=== PATIENT | male | born 1995 | race Caucasian/White ===

== ENCOUNTER 2023-03-18 14:30 | Emergency (ER) | payer MEDICAID ==
--- NOTE | 2023-03-18 14:34 | ERPHSYRPT ---
- History of Present Illness Time Seen by Provider: 03/18/23 14:34 Historian: patient Exam Limitations: no limitations Physician History: This is a 27-year-old white male who presents with 2 episodes of right upper quadrant abdominal pain. Patient states he did not eat breakfast but he did have chicken nuggets for lunch. Approxi-12:30 PM he began having the pain it r esolved and then recurred. The pain was severe he had associated nausea without vomiting. Patient states that he was in residential over the last several months and he has had these episodes at that time. He was told he may have a gallbladder issue. Patient denies chest pain. Patient denies fevers. He denies cough. He does not have shortness of breath. Timing/Duration: today Abdominal Pain Onset Location: RUQ Pain Radiation: no radiation Severity of Pain-Max: moderate Severity of Pain-Current: mild (To moderate) Modifying Factors: Improves With: nothing Associated Symptoms: nausea, No chest pain, No diarrhea, No fever/chills, No shortness of breath, No vomiting Previous symptoms: same symptoms as today, no recent treatment Allergies/Adverse Reactions: codeine Allergy (Unknown, Verified 03/18/23 14:42) Home Medications: No Reportable Medications [No Reported Medications] 03/18/23 [History] Travel Risk - International Travel Have you traveled outside of the country in past 3 weeks: No - Coronavirus Screening Are you exhibiting any of the following symptoms?: No Close contact with a COVID-19 positive Pt in past 14-21 Days: No - Review of Systems Constitutional: No Symptoms Eyes: No Symptoms Ears, Nose, & Throat: No Symptoms Respiratory: No Symptoms Cardiac: No Symptoms Abdominal/Gastrointestinal: Abdominal Pain (Right upper quadrant), Nausea, No Constipation Genitourinary Symptoms: No Symptoms Musculoskeletal: No Symptoms Skin: No Symptoms Neurological: No Symptoms Psychological: No Symptoms Endocrine: No Symptoms Hematologic/Lymphatic: No Symptoms Immunological/Allergic: No Symptoms All Other Systems: Reviewed and Negative - Past Medical History Pertinent Past Medical History: No - Past Surgical History Past Surgical History: No - Nursing Vital Signs Nursing Vital Signs: Initial Vital Signs Temperature 97.3 F 03/18/23 14:37 Pulse Rate 84 03/18/23 14:37 Respiratory Rate 20 03/18/23 14:37 Blood Pressure 134/80 03/18/23 14:37 O2 Sat by Pulse Oximetry 97 03/18/23 14:37 Pain Scale Pain Intensity 4 - Physical Exam General Appearance: no apparent distress, alert, anxiety Eye Exam: PERRL/EOMI, eyes nml inspection Ears, Nose, Throat Exam: normal ENT inspection, moist mucous membranes Neck Exam: normal inspection, non-tender, supple, full range of motion Respiratory Exam: normal breath sounds, lungs clear, airway intact, No chest tenderness, No respiratory distress Cardiovascular Exam: regular rate/rhythm, normal heart sounds, normal peripheral pulses Gastrointestinal/Abdomen Exam: soft, normal bowel sounds, tenderness (Right upper quadrant), guarding (Mild right upper quadrant palpation), No rebound Rectal Exam: not done Back Exam: normal inspection, normal range of motion, No CVA tenderness, No vertebral tenderness Extremity Exam: normal inspection, normal range of motion, pelvis stable Neurologic Exam: alert, oriented x 3, cooperative, bag sealer II-XII nml as tested, normal mood/affect, nml cerebellar function, nml station & gait, sensation nml Skin Exam: normal color, warm, dry Lymphatic Exam: No adenopathy SpO2 Interpretation: normal O2 Delivery: Room Air - Course Nursing assessment & vital signs reviewed: Yes Ordered Tests: Active Orders 24 hr Category Date Time Status IV Insertion STAT Care 03/18/23 14:45 Active ABDOMEN AND PELVIS W/0 CONTRAS [CT] Stat Exams 03/18/23 14:45 Completed AMYLASE Stat Lab 03/18/23 14:30 Completed CBC W DIFF Stat Lab 03/18/23 14:30 Completed CMP Stat Lab 03/18/23 14:30 Completed LIPASE Stat Lab 03/18/23 14:30 Completed UA W/RFX UR CULTURE Stat Lab 03/18/23 16:55 Completed Medication Summary Discontinued Medications Generic Name Dose Route Start Last Admin Trade Name Freq PRN Reason Stop Dose Admin Hydromorphone HCl 0.5 mg 03/18/23 14:45 03/18/23 15:17 Hydromorphone 1 Mg/1ml Inj IV 03/18/23 14:46 0.5 mg STAT ONE Administration Hydromorphone HCl Confirm 03/18/23 15:15 Hydromorphone 1 Mg/1ml Inj Administered 03/18/23 15:16 Dose 1 mg .ROUTE .STK-MED ONE Sodium Chloride 1,000 mls @ 999 mls/hr 03/18/23 14:45 03/18/23 16:35 Sodium Chloride 0.9% 1000 Ml IV 03/18/23 15:45 Infused .Q1H1M STA Infusion Sodium Chloride Confirm 03/18/23 15:15 Sodium Chloride 0.9% 1000 Ml Administered 03/18/23 15:16 Dose 1,000 mls @ ud .ROUTE .STK-MED ONE Ketorolac Tromethamine 30 mg 03/18/23 14:45 03/18/23 15:16 Ketorolac Tromethamine 30 Mg/Ml Inj IV 03/18/23 14:46 30 mg STAT ONE Administration Ketorolac Tromethamine Confirm 03/18/23 15:14 Ketorolac Tromethamine 30 Mg/Ml Inj Administered 03/18/23 15:15 Dose 30 mg .ROUTE .STK-MED ONE Ondansetron HCl 4 mg 03/18/23 14:45 03/18/23 15:16 Ondansetron Hcl 4 Mg/2 Ml Vial IV 03/18/23 14:46 4 mg STAT ONE Administration Ondansetron HCl Confirm 03/18/23 15:14 Ondansetron Hcl 4 Mg/2 Ml Vial Administered 03/18/23 15:15 Dose 4 mg .ROUTE .STK-MED ONE Lab/Rad Data: Laboratory Result Diagrams 03/18/23 14:30 03/18/23 14:30 Laboratory Results 03/18/23 03/18/23 03/18/23 Range/Units 16:55 14:30 14:30 WBC 11.2 H (4.0-10.5) x10^3/uL RBC 5.19 (4.1-5.6) x10^6/uL Hgb 13.6 (12.5-18.0) g/dL Hct 41.8 L (42-50) % MCV 80.5 (78-100) fL MCH 26.2 (26-32) pg MCHC 32.5 (32-36) g/dL RDW 13.2 (11.5-14.0) % Plt Count 263 (150-450) x10^3/uL MPV 11.6 H (7.5-11.0) fL Gran % 69.8 H (36.0-66.0) % Immature Gran % (Auto) 0.4 (0.00-0.4) % Nucleat RBC Rel Count 0.0 (0.00-0.1) % Eos # (Auto) 0.14 (0-0.5) x10^3/uL Immature Gran # (Auto) 0.05 H (0.00-0.03) x10^3u/L Absolute Lymphs (auto) 2.40 (1.0-4.6) x10^3/uL Absolute Monos (auto) 0.75 (0.0-1.3) x10^3/uL Absolute Nucleated RBC 0.00 (0.00-0.01) x10^3u/L Lymphocytes % 21.4 L (24.0-44.0) % Monocytes % 6.7 (0.0-12.0) % Eosinophils % 1.3 (0.00-5.0) % Basophils % 0.4 (0.0-0.4) % Absolute Granulocytes 7.82 H (1.4-6.9) x10^3/uL Basophils # 0.04 (0-0.4) x10^3/uL Sodium 140 (137-145) mmol/L Potassium 4.2 (3.5-5.1) mmol/L Chloride 107 (98-107) mmol/L Carbon Dioxide 23 (22-30) mmol/L Anion Gap 14.0 (5-15) MEQ/L BUN 14 (9-20) mg/dL Creatinine 1.02 (0.66-1.25) mg/dL Estimated GFR > 60.0 ML/MIN Glucose 128 H (74-106) mg/dL Calcium 9.2 (8.4-10.2) mg/dL Total Bilirubin 0.60 (0.2-1.3) mg/dL AST 28 (17-59) U/L ALT 33 (0-50) U/L Alkaline Phosphatase 73 (38-126) U/L Serum Total Protein 7.8 (6.3-8.2) g/dL Albumin 4.5 (3.5-5.0) g/dL Amylase 61 (30-110) U/L Lipase 72 (23-300) U/L Urine Color Yellow (Yellow) Urine Appearance Clear (Clear) Urine pH 7.5 (4.6-8.0) Ur Specific [place] 1.020 (1.005-1.030) Urine Protein Negative (Negative) Urine Glucose (UA) Negative (Negative) mg/dL Urine Ketones Negative (Negative) Urine Blood Negative (Negative) Urine Nitrite Negative (Negative) Urine Bilirubin Negative (Negative) Urine Urobilinogen 0.2 (0.2) mg/dL Ur Leukocyte Esterase Negative (Negative) U Hyaline Cast (Auto) NONE SEEN (0-2) /LPF Urine Microscopic RBC 0-2 (0-5) /HPF Urine Microscopic WBC 0-2 (0-5) /HPF Ur Epithelial Cells None Seen (None Seen) /HPF Urine Bacteria None Seen (None Seen) /HPF Urine Culture Reflexed NO (NO) - Progress Progress: improved, re-examined Progress Note: 03/18/23 15:31 CT scan of the abdomen pelvis without contrast was interpreted by the radiologist. I reviewed the impression. There is a normal appendix. The gallbladder is partially contracted without evidence of gallstones or biliary distention. No other acute intra-abdominal intrapelvic findings present. 03/18/23 16:39 This patient's medical issue is 1 of moderate complexity. The level of complexity and the work-up performed is based on review of the patient's past medical history, review of the patient's medication list, review of the patient's drug allergy list, history of present illness and physical findings on examination. The work-up in this patient includes a urinalysis, CT scan of the abdomen pelvis, placement of an intravenous line with infusion of 1 L of normal saline solution, infusion of Toradol intravenously, Dilaudid intravenously and Zofran intravenously. We also jose enrique CBC, CMP, amylase and lipase. Review of the CAT scan of the abdomen pelvis shows no acute intra-abdominal or intrapelvic findings at this time. We are awaiting the urinalysis. The remainder of the blood work results are negative for any acute, emergent medical condition. Patient will be discharged to home. We will add an antibiotic if the urinalysis shows infection. Otherwise the patient will follow-up with his primary care physician as an outpatient and obtain a gallbladder ultrasound or HIDA scan if indicated. Counseled pt/family regarding: lab results, diagnosis, need for follow-up, rad results Medical Desision Making - Diagnostic Testing Diagnostic test were ordered, analyzed, and reviewed by me: Yes Radiological Interpretation: Reviewed by me, Teleradiologist Report - Risk of complications Minimal Risk: Minimal risk of morbidity - Departure Departure Disposition: Home Clinical Impression: Right upper quadrant abdominal pain Condition: Stable Critical Care Time: No Referrals: DOCTOR,NO FAMILY [Primary Care Provider] - Follow up/PCP as directed Additional Instructions: Avoid fatty greasy spicy foods. Follow-up with your primary care provider on 03/21/2023 for further evaluation including gallbladder ultrasound and HIDA scan if indicated. Use Tylenol and ibuprofen for pain control.
[2023-03-18] MEDS ORDERED: TORAdol 30 mg Injection IV ONE (14:45)
[2023-03-18] MEDS ORDERED: Hydromorphone 1 mg/ml Injection IV ONE (14:45)
[2023-03-18] MEDS ORDERED: Sodium Chloride 0.9% 1000 ML 1,000 ML IV STA (14:45)
[2023-03-18] MEDS ORDERED: Zofran 4 MG/2 ML VIAL IV ONE (14:45)
[2023-03-18 14:59] LABS: Absolute Neutrophil Ct (ANC) 7.82 x10^3/uL (1.4-6.9); BASOPHIL % 0.4 % (0.0-0.4); Basophil (Absolute #) 0.04 x10^3/uL (0-0.4); Eosinophil % 1.3 % (0.00-5.0); Eosinophil (Absolute #) 0.14 x10^3/uL (0-0.5); Hematocrit 41.8 % (42-50); Hemoglobin 13.6 g/dL (12.5-18.0); IMMATURE GRAN # 0.05 x10^3u/L (0.00-0.03); IMMATURE GRAN % 0.4 % (0.00-0.4); Lymphocytes % 21.4 % (24.0-44.0); Mean Cell Volume 80.5 fL (78-100); Mean Corpuscular Hemoglobin 26.2 pg (26-32); Mean Corpuscular Hgb Concent. 32.5 g/dL (32-36); Mean Platelet Volume 11.6 fL (7.5-11.0); Monocyte (Absolute #) 0.75 x10^3/uL (0.0-1.3); Monocytes % 6.7 % (0.0-12.0); Neutrophil % 69.8 % (36.0-66.0); Platelet Count 263 x10^3/uL (150-450); Red Blood Count 5.19 x10^6/uL (4.1-5.6); Red Cell Distribution Width 13.2 % (11.5-14.0); White Blood Count 11.2 x10^3/uL (4.0-10.5)
[2023-03-18 15:12] LABS: ALBUMIN 4.5 g/dL (3.5-5.0); ALKALINE PHOSPHATASE 73 U/L (38-126); AMYLASE 61 U/L (30-110); BLOOD UREA NITROGEN 14 mg/dL (9-20); CHLORIDE 107 mmol/L (98-107); Calcium 9.2 mg/dL (8.4-10.2); Carbon Dioxide 23 mmol/L (22-30); Creatinine 1 1.02 mg/dL (0.66-1.25); EST GLOMERULAR FILTRATION RATE > 60.0 ML/MIN; Glucose 128 mg/dL (74-106); LIPASE 72 U/L (23-300); Potassium 4.2 mmol/L (3.5-5.1); SGOT/AST 28 U/L (17-59); SGPT/ALT 33 U/L (0-50); SODIUM 140 mmol/L (137-145); Total Protein 7.8 g/dL (6.3-8.2)
[2023-03-18] MEDS ORDERED: TORAdol 30 mg Injection ONE (15:14)
[2023-03-18] MEDS ORDERED: Zofran 4 MG/2 ML VIAL ONE (15:14)
[2023-03-18] MEDS ORDERED: Sodium Chloride 0.9% 1000 ML 1,000 ML ONE (15:15)
[2023-03-18] MEDS ORDERED: Hydromorphone 1 mg/ml Injection ONE (15:15)
--- NOTE | 2023-03-18 15:16 | XRAY ---
Indication: Right upper quadrant pain. Multiple contiguous axial images obtained through the abdomen and pelvis without contrast. Comparison: None Lung bases demonstrate small right mid lung and subcarinal calcified granulomas. No infiltrate or effusion. Heart not enlarged. Stomach is distended with food/fluid. Noncontrasted stomach and bowel loops appear nonobstructed with normal appendix. Gallbladder partially contracted without gallstones or biliary distention. No free fluid/air. Remaining liver, gallbladder, pancreas, spleen, adrenal glands, kidneys, ureters, bladder, and aorta are unremarkable for noncontrast exam. Osseous structures intact. No ventral or inguinal hernias. Impression: CT abdomen/pelvis without contrast exam is negative. Incidental old granulomatous disease.
[2023-03-18 16:02] VITALS: BP 134/80
[2023-03-18 17:08] LABS: Appearance Clear (Clear); Bacteria None Seen /HPF (None Seen); Bilirubin Negative (Negative); Blood Negative (Negative); Epithelial Cells None Seen /HPF (None Seen); Glucose, Urine Negative (Negative); Hyaline Casts NONE SEEN /LPF (0-2); Ketones Negative (Negative); Leukocyte Esterase Negative (Negative); Nitrite Negative (Negative); Ph 7.5 (4.6-8.0); Protein,Urine Dip Negative (Negative); RBC 0-2 /HPF (0-5); Urobilinogen 0.2 mg/dL (0.2); WBC 0-2 /HPF (0-5)
[2023-03-18 17:10] LABS: ADD URINE CULTURE? NO (NO)
[2023-03-18 17:27] VITALS: PULSE 72; O2SAT 98
== END 2023-03-18 17:41 | disposition home or self-care (01) ==
LOC: ED 14:30
DX: R10.11 Right upper quadrant pain (principal); R11.0 Nausea
CPT/HCPCS: 36000; 36415; 74176; 80053; 81001; 82150; 83690; 85025; 96374; 96375; 99284; J1170; J1885; J2405

== ENCOUNTER 2023-03-28 17:26 | Emergency (ER) | payer MEDICAID ==
--- NOTE | 2023-03-28 18:00 | ERPHSYRPT ---
- History of Present Illness Historian: patient Exam Limitations: no limitations Patient Subjective Stated Complaint: Abdominal pain Triage Nursing Assessment: Patient ambulated back to ED and transferred self to bed. Patient A+O X 3. Patient's skin pink, warm and dry. Patient complains of RUQ pain while he was at work, but denies pain or discomfort. Patient has appointment with PCP to be referred to Dr. Noel tomorrow. Patient currently denies pain or discomfort, N/V. Physician History: 27 yo WM w intermittent RUQ pain x 2 wks. Pt was seen in the ER on 03/18/[address] ab-pelvis/neg lag work. Pain started while he was at work today but is now pain free. It was 03/21 at its max and described as sharp wo radiation. He denied nausea/vomiting but has had some diarrhea. Melena/hematochezia/dysuria/hematuria/chest pain are all denied. Timing/Duration: resolved prior to arrival Activities at Onset: other (Assembly line) Quality: sharpness Abdominal Pain Onset Location: RUQ Pain Radiation: no radiation Severity of Pain-Max: moderate Severity of Pain-Current: none Modifying Factors: Improves With: nothing Associated Symptoms: denies symptoms, diarrhea Previous symptoms: same symptoms as today Allergies/Adverse Reactions: codeine Allergy (Unknown, Verified 03/28/23 17:50) Hx Tetanus, Diphtheria Vaccination/Date Given: No Hx Influenza Vaccination/Date Given: No Hx Pneumococcal Vaccination/Date Given: No Immunizations Up to Date: Yes Travel Risk - International Travel Have you traveled outside of the country in past 3 weeks: No - Coronavirus Screening Are you exhibiting any of the following symptoms?: No Close contact with a COVID-19 positive Pt in past 14-21 Days: No - Vaccine Status Have you recieved a Covid-19 vaccination: No - Review of Systems Constitutional: No Symptoms Eyes: No Symptoms Ears, Nose, & Throat: No Symptoms Respiratory: No Symptoms Cardiac: No Symptoms Abdominal/Gastrointestinal: No Symptoms, Abdominal Pain, Diarrhea Genitourinary Symptoms: No Symptoms Musculoskeletal: No Symptoms Skin: No Symptoms Neurological: No Symptoms Psychological: No Symptoms Endocrine: No Symptoms Hematologic/Lymphatic: No Symptoms Immunological/Allergic: No Symptoms - Past Medical History Pertinent Past Medical History: No Psycho-Social History: Attention Deficit Disorder - Past Surgical History Past Surgical History: No - Social History Smoking Status: Never smoker Exposure to second hand smoke: Yes Drug Use: marijuana Patient Lives Alone: No - Nursing Vital Signs Nursing Vital Signs: Initial Vital Signs Temperature 97.4 F 03/28/23 17:51 Pulse Rate 77 03/28/23 17:51 Respiratory Rate 18 03/28/23 17:51 Blood Pressure 127/74 03/28/23 17:51 O2 Sat by Pulse Oximetry 98 03/28/23 17:51 Pain Scale Pain Intensity 3 WNL - Physical Exam General Appearance: no apparent distress Eye Exam: PERRL/EOMI, eyes nml inspection Ears, Nose, Throat Exam: normal ENT inspection, TMs normal, pharynx normal, moist mucous membranes Neck Exam: normal inspection, non-tender, supple, full range of motion, No meningismus, No mass, No Brudzinski, No Kernig's Respiratory Exam: normal breath sounds, lungs clear, airway intact, No re spiratory distress Cardiovascular Exam: regular rate/rhythm, normal heart sounds, normal peripheral pulses, capillary refill <2 sec, No murmur Gastrointestinal/Abdomen Exam: soft, normal bowel sounds, tenderness (Very mild RUQ TTP wo guarding or rebound) Back Exam: normal inspection, normal range of motion, No CVA tenderness, No vertebral tenderness Extremity Exam: normal inspection, normal range of motion Neurologic Exam: alert, oriented x 3, cooperative, bookstore clerk II-XII nml as tested, normal mood/affect, nml cerebellar function, nml station & gait, sensation nml Skin Exam: normal color, warm, dry Lymphatic Exam: No adenopathy SpO2 Interpretation: normal SpO2: 98 O2 Delivery: Room Air - Course Nursing assessment & vital signs reviewed: Yes - CT Exams Abdomen/Pelvis CT Interpretation: Discussed w/radiologist (Mild diffuse colitis) Ordered Tests: Active Orders 24 hr Category Date Time Status IV Insertion STAT Care 03/28/23 17:57 Active ABDOMEN AND PELVIS W CONTRAST [CT] Stat Exams 03/28/23 18:56 Taken AMYLASE Stat Lab 03/28/23 17:50 Completed CBC W DIFF Stat Lab 03/28/23 17:50 Completed CMP Stat Lab 03/28/23 17:50 Completed LIPASE Stat Lab 03/28/23 17:50 Completed UA W/RFX UR CULTURE Stat Lab 03/28/23 17:57 Completed Medication Summary Discontinued Medications Generic Name Dose Route Start Last Admin Trade Name Celio PRN Reason Stop Dose Admin Metronidazole 500 mg 03/28/23 20:01 03/28/23 20:02 Metronidazole 500 Mg Tablet PO 03/28/23 20:02 500 mg STAT ONE Administration Lab/Rad Data: Laboratory Result Diagrams 03/28/23 17:50 03/28/23 17:50 Laboratory Results 03/28/23 03/28/23 03/28/23 Range/Units 17:57 17:50 17:50 WBC 11.6 H (4.0-10.5) x10^3/uL RBC 5.06 (4.1-5.6) x10^6/uL Hgb 13.5 (12.5-18.0) g/dL Hct 40.5 L (42-50) % MCV 80.0 (78-100) fL MCH 26.7 (26-32) pg MCHC 33.3 (32-36) g/dL RDW 13.2 (11.5-14.0) % Plt Count 258 (150-450) x10^3/uL MPV 11.2 H (7.5-11.0) fL Gran % 67.1 H (36.0-66.0) % Immature Gran % (Auto) 0.3 (0.00-0.4) % Nucleat RBC Rel Count 0.0 (0.00-0.1) % Eos # (Auto) 0.17 (0-0.5) x10^3/uL Immature Gran # (Auto) 0.04 H (0.00-0.03) x10^3u/L Absolute Lymphs (auto) 2.75 (1.0-4.6) x10^3/uL Absolute Monos (auto) 0.82 (0.0-1.3) x10^3/uL Absolute Nucleated RBC 0.00 (0.00-0.01) x10^3u/L Lymphocytes % 23.7 L (24.0-44.0) % Monocytes % 7.1 (0.0-12.0) % Eosinophils % 1.5 (0.00-5.0) % Basophils % 0.3 (0.0-0.4) % Absolute Granulocytes 7.78 H (1.4-6.9) x10^3/uL Basophils # 0.04 (0-0.4) x10^3/uL Sodium 139 (137-145) mmol/L Potassium 4.2 (3.5-5.1) mmol/L Chloride 104 (98-107) mmol/L Carbon Dioxide 27 (22-30) mmol/L Anion Gap 12.4 (5-15) MEQ/L BUN 14 (9-20) mg/dL Creatinine 1.04 (0.66-1.25) mg/dL Estimated GFR > 60.0 ML/MIN Glucose 92 (74-106) mg/dL Calcium 9.3 (8.4-10.2) mg/dL Total Bilirubin 0.40 (0.2-1.3) mg/dL AST 27 (17-59) U/L ALT 22 (0-50) U/L Alkaline Phosphatase 78 (38-126) U/L Serum Total Protein 7.8 (6.3-8.2) g/dL Albumin 4.5 (3.5-5.0) g/dL Amylase 60 (30-110) U/L Lipase 76 (23-300) U/L Urine Color Yellow (Yellow) Urine Appearance Clear (Clear) Urine pH 6.5 (4.6-8.0) Ur Specific [place] <=1.005 (1.005-1.030) Urine Protein Negative (Negative) Urine Glucose (UA) Negative (Negative) mg/dL Urine Ketones Negative (Negative) Urine Blood Negative (Negative) Urine Nitrite Negative (Negative) Urine Bilirubin Negative (Negative) Urine Urobilinogen 0.2 (0.2) mg/dL Ur Leukocyte Esterase Negative (Negative) U Hyaline Cast (Auto) NONE SEEN (0-2) /LPF Urine Microscopic RBC 0-2 (0-5) /HPF Urine Microscopic WBC 0-2 (0-5) /HPF Ur Epithelial Cells None Seen (None Seen) /HPF Urine Bacteria None Seen (None Seen) /HPF Urine Culture Reflexed NO (NO) - Progress Progress Note: 03/28/23 20:04 Nursing note and vital signs reviewed No food or housing insecurities noted All lab results reviewed and shared w pt CT results reviewed and shared w pt Pt refused all pain meds during stay 500mg po Flagyl Counseled pt/family regarding: lab results, diagnosis, need for follow-up, rad results Medical Desision Making - Diagnostic Testing Diagnostic test were ordered, analyzed, and reviewed by me: Yes Radiological Interpretation: Reviewed by me - Risk of complications The pt has a mod risk of morbidity or mortality based on: Need for prescription drug management - Departure Departure Disposition: Home Clinical Impression: Colitis Condition: Stable Critical Care Time: No Referrals: DOCTOR,NO FAMILY [NON-STAFF PHY W/O PRIVILEGES] - Follow up/PCP as directed Instructions: Colitis, Severe Abdominal Pain, Adult (DC) Additional Instructions: Fluids Continue with Flagyl tomorrow(No alcohol w Flagyl) Bentyl as needed for pain Keep your appointment w PROTECTIVE SIGNAL INSTALLER HELPER tomorrow Return to ER for increasing pain or temperature greater than 100.5 Forms: Work/School Release Form Prescriptions: Dicyclomine HCl 20 mg [Bentyl 20 mg] 20 mg PO QID PRN PRN #15 tablet PRN Reason: Pain Metronidazole 500 mg [Flagyl 500 MG] 500 mg PO TID 7 Days #21 tablet
[2023-03-28 18:03] LABS: Absolute Neutrophil Ct (ANC) 7.78 x10^3/uL (1.4-6.9); BASOPHIL % 0.3 % (0.0-0.4); Basophil (Absolute #) 0.04 x10^3/uL (0-0.4); Eosinophil % 1.5 % (0.00-5.0); Eosinophil (Absolute #) 0.17 x10^3/uL (0-0.5); Hematocrit 40.5 % (42-50); Hemoglobin 13.5 g/dL (12.5-18.0); IMMATURE GRAN # 0.04 x10^3u/L (0.00-0.03); IMMATURE GRAN % 0.3 % (0.00-0.4); Lymphocyte (Absolute #) 2.75 x10^3/uL (1.0-4.6); Lymphocytes % 23.7 % (24.0-44.0); Mean Corpuscular Hemoglobin 26.7 pg (26-32); Mean Corpuscular Hgb Concent. 33.3 g/dL (32-36); Mean Platelet Volume 11.2 fL (7.5-11.0); Monocyte (Absolute #) 0.82 x10^3/uL (0.0-1.3); Monocytes % 7.1 % (0.0-12.0); Neutrophil % 67.1 % (36.0-66.0); Platelet Count 258 x10^3/uL (150-450); Red Blood Count 5.06 x10^6/uL (4.1-5.6); Red Cell Distribution Width 13.2 % (11.5-14.0); White Blood Count 11.6 x10^3/uL (4.0-10.5)
[2023-03-28 18:09] LABS: Appearance Clear (Clear); Bacteria None Seen /HPF (None Seen); Bilirubin Negative (Negative); Blood Negative (Negative); Epithelial Cells None Seen /HPF (None Seen); Glucose, Urine Negative (Negative); Hyaline Casts NONE SEEN /LPF (0-2); Ketones Negative (Negative); Leukocyte Esterase Negative (Negative); Nitrite Negative (Negative); Ph 6.5 (4.6-8.0); Protein,Urine Dip Negative (Negative); RBC 0-2 /HPF (0-5); Specific Gravity <=1.005 (1.005-1.030); Urobilinogen 0.2 mg/dL (0.2); WBC 0-2 /HPF (0-5)
[2023-03-28 18:10] LABS: ADD URINE CULTURE? NO (NO)
[2023-03-28 18:16] LABS: ALBUMIN 4.5 g/dL (3.5-5.0); ALKALINE PHOSPHATASE 78 U/L (38-126); AMYLASE 60 U/L (30-110); ANION GAP 12.4 MEQ/L (5-15); BLOOD UREA NITROGEN 14 mg/dL (9-20); CHLORIDE 104 mmol/L (98-107); Calcium 9.3 mg/dL (8.4-10.2); Carbon Dioxide 27 mmol/L (22-30); Creatinine 1 1.04 mg/dL (0.66-1.25); EST GLOMERULAR FILTRATION RATE > 60.0 ML/MIN; Glucose 92 mg/dL (74-106); LIPASE 76 U/L (23-300); Potassium 4.2 mmol/L (3.5-5.1); SGOT/AST 27 U/L (17-59); SGPT/ALT 22 U/L (0-50); SODIUM 139 mmol/L (137-145); Total Protein 7.8 g/dL (6.3-8.2)
[2023-03-28 18:29] VITALS: BP 124/76
[2023-03-28] MEDS ORDERED: Flagyl 500 MG PO ONE (20:01)
[2023-03-28 20:02] VITALS: O2SAT 98
[2023-03-28] MEDS ORDERED: Flagyl 500 MG ONE (20:02)
[2023-03-28 20:08] VITALS: PULSE 72
--- NOTE | 2023-03-29 08:42 | XRAY ---
Indication: Right upper quadrant pain. Chronic loose stools. Multiple contiguous axial images obtained through the abdomen and pelvis using 80 cc Isovue 370 contrast. Comparison: March 18, 2023 Lung bases clear again with a few incidental right lung and subcarinal calcified granulomas. Heart is not enlarged. Noncontrasted stomach and bowel loops appear nonobstructed. Continued normal appearing appendix and ileocecal junction. Colon now demonstrates mild diffuse circumferential wall thickening with minimal pericolonic stranding favoring colitis. Incidental sigmoid diarrhea. No free fluid/air. Remaining liver, gallbladder, pancreas, spleen, adrenal glands, kidneys, ureters, bladder, and aorta are unremarkable. No pathologic retroperitoneal lymphadenopathy. Impression: New CT findings favoring mild diffuse colitis. Again incidental old granulomatous disease.
== END 2023-03-28 20:11 | disposition home or self-care (01) ==
LOC: ED 17:26
DX: K52.9 Noninfective gastroenteritis and colitis, unspecified (principal); R10.11 Right upper quadrant pain; Z28.310 Unvaccinated for COVID-19
CPT/HCPCS: 36000; 36415; 74177; 80053; 81001; 82150; 83690; 85025; 99283; A9270-GY